=== PATIENT | male | born 1975 | race Caucasian/White ===

== ENCOUNTER 2023-11-07 20:21 | Inpatient (IN) ==
[2023-11-07 21:14] LABS: iSTAT Creatinine 0.8 mg/dl (0.6-1.3); iSTAT Hemoglobin 16.3 g/dl (14.0-18.0); iSTAT Ionized Calcium 1.19 mmol/l (1.12-1.32); iSTAT Potassium 3.7 mmol/L (3.3-5.0)
[2023-11-07 21:14] LABS: Hematocrit (blood only) 46.5 % (42.0-52.0); Hemoglobin 16.3 g/dl (14.0-18.0); Mean Corpuscular Hgb Conc 35.1 g/dL (32.0-36.0); Mean Corpuscular Volume 85.5 fL (80.0-100.0); Mean Platelet Volume 9.5 fL (9.4-12.4); Platelet Count 233 K/uL (130-400); RDW Coefficient of Variation 12.9 % (11.5-14.5); RDW Standard Deviation 39.3 fL (36.4-46.3); Red Blood Count 5.44 M/uL (4.70-6.10); White Blood Count 7.56 K/ul (4.8-10.8)
--- NOTE | 2023-11-07 21:22 | Emergency Department Note ---
Impression & Plan Cerebrovascular accident ED Provider Note NAME: EMORY SIGALA AGE: 48 SEX: M : 1975 ARRIVES VIA: Walk-In INFORMANT: Patient ED PROVIDER(S): Grady Rashid DO CHIEF COMPLAINT: Visual changes, unsteady gait HPI: Patient is a 48-year-old male with a past medical history of hypertension and CVA as well as hyperlipidemia that presents to the ER as he went to bed around 1 PM today. He got up around 4. He was unable to walk. He is having trouble with his vision and feels very off. This feels like his previous stroke. He admits to a posterior headache associated with it. Denies any chest pain or shortness of breath. No nausea, vomiting, or diarrhea. No dysuria, urgency, or frequency. No other exacerbating or remitting factors. ADDITIONAL HISTORY OBTAINED: Per HPI Chronic Medical/Social Conditions Affecting Care: Per HPI PAST MEDICAL HISTORY:See Below PAST SURGICAL HISTORY:See Below FAMILY HISTORY:See Below SOCIAL HISTORY:See Below HOME MEDICATIONS:See Below ALLERGIES:See Below VITALS:See Below PHYSICAL EXAMINATION: GENERAL: Sitting up in bed, alert, well appearing, well nourished, no distress, non-toxic EYE EXAM: normal conjunctiva. PERRL and EOM's intact. OROPHARYNX: no exudate, no erythema, lips, buccal mucosa, and tongue normal and mucous membranes are moist NECK: supple, no nuchal rigidity, no adenopathy, non-tender LUNGS: Clear to auscultation. Normal chest wall mechanics HEART: no murmurs, S1 normal and S2 normal ABDOMEN: abdomen soft, non-tender, normo-active bowel sounds, no masses, no rebound or guarding. BACK: Back is symmetrical on inspection and there is no deformity, no midline tenderness, no CVA tenderness. SKIN: no rashes and no bruising UPPER EXTREMITIES: upper extremities are grossly normal. LOWER EXTREMITIES: No pitting edema. NEURO EXAM: Normal sensorium, cranial nerves II-XII intact, normal speech, no weakness of arms, no weakness of legs. No drift. Finger to nose intact. Gross sensation intact. MEDICAL DECISION MAKING: Patient is a 48-year-old male who presents the ER for trouble with his vision as well is unsteady gait/feeling off balance. IV was established blood work was obtained. Labs show no significant leukocytosis or anemia. INR unremarkable. BMP along LFTs bilirubin was unremarkable. CT angio of the head and neck suggest a TAM occlusion/stenosis. [facility] She agrees that nothing additional can be done at this time other than adding in Plavix and giving a Plavix load of 300 at this time. Patient is already on aspirin. I recommend a full workup. Patient was discussed with the hospitalist for further evaluation management treatment. Consults/Care Managements Discussions: Per [facility] Triage Nursing notes reviewed. Limited review of prior medical records performed Vital Signs: reviewed and remarkable for HTN Differential diagnosis: Differential Diagnosis includes but is not limited to ischemic Stroke, hemorrhagic stroke, bells palsy, mass, neoplasm, migraine headache, seizure, subarachnoid hemorrhage, TIA, and transient global amnesia. ER treatment provided: See below Diagnostics interpreted by me include EKG and cardiac monitoring as listed below: -Cardiac Monitoring: An order was placed for continuous cardiac monitoring. The monitor shows a rate of 80 with sinus rhythm. -ECG: Sinus rhythm rate 82 Normal axis No PVCs QTc 427 -Laboratory studies:Interpreted by me as stated above in MDM and shown below. Imaging studies: Xrays: As interpreted by me: Portable AP upright 1 view of the chest shows no focal infiltrate CTs show: CT angios of the head and neck as described above Procedures:none Critical Care: None Past Med/Surg History Medical History (Updated 11/08/23 @ 01:25 by Grady Rashid DO) Kidney stones History of foreign body in eye removed Surgical History H/O lithotripsy ESWL Left 02/2023 at [facility] [place] Hx of wisdom tooth extraction Hx of excision of mass fatty tumor, back Hx of appendectomy Family History Other No family history of adverse response to anesthesia Social History Smoking Status: Current every day smoker Tobacco Type: Cigarettes Cigarettes Per Day: 1 pack per day - advised; Second Hand Exposure: No; Do You Dip or Chew Tobacco: No; Hx Alcohol Use: Yes Hx Substance Use: No Preferred Language: Togolese Communication Ability: Effective Family And Consumer Education Teacher Required: No Beliefs That Will Affect Care: None Current Living Situation: Significant Other Feels Safe at Home: Yes Assistive Devices: Glasses Allergies Allergies Allergy/AdvReac Type Severity Reaction Status Date / Time No Known Allergies Allergy Mild Verified 09/29/23 08:39 Home Meds Home Medications Medication Instructions Recorded Confirmed aspirin 81 mg capsule 81 mg PO QAM 03/04/23 09/29/23 atorvastatin 80 mg tablet 80 mg PO HS 03/04/23 09/29/23 losartan 100 mg tablet 100 mg PO HS 03/04/23 09/29/23 Results & Data (ED) Vital Signs Vital Signs - 24 hr 11/07/23 20:25 11/07/23 21:11 11/07/23 21:11 Temperature 36.7 C Temperature Source Temporal Artery Scan Pulse Rate 88 84 Pulse Rate [Apical] Pulse Rate from SpO2 Sensor Pulse Rhythm [Apical] Respiratory Rate 17 16 Respiratory Effort / Characteristics Non-Labored Spontaneous Respiratory Depth Normal Respiratory Pattern Bradypnea Blood Pressure 167/112 H Blood Pressure [Left Arm] Blood Pressure Mean 130 Blood Pressure Mean [Left Arm] Pulse Oximetry 94 94 94 Oxygen Delivery Method Room Air Room Air Room Air Sepsis Recent Fever Within 48 Hours No Sepsis New/Unexplained Change in Mental Status No Sepsis Action Taken by Nursing No Action Required 11/07/23 21:12 11/07/23 22:02 11/07/23 22:57 Temperature Temperature Source Pulse Rate 81 Pulse Rate [Apical] 83 82 Pulse Rate from SpO2 Sensor 82 Pulse Rhythm [Apical] Regular Respiratory Rate 16 16 15 Respiratory Effort / Characteristics Non-Labored Spontaneous Respiratory Depth Normal Respiratory Pattern Regular Blood Pressure Blood Pressure [Left Arm] 148/103 H 141/103 H Blood Pressure Mean Blood Pressure Mean [Left Arm] 118 115 Pulse Oximetry 94 95 95 Oxygen Delivery Method Room Air Room Air Sepsis Recent Fever Within 48 Hours Sepsis New/Unexplained Change in Mental Status Sepsis Action Taken by Nursing 11/07/23 23:00 11/07/23 23:00 11/07/23 23:00 Temperature Temperature Source Pulse Rate 79 81 78 Pulse Rate [Apical] Pulse Rate from SpO2 Sensor 79 Pulse Rhythm [Apical] Respiratory Rate 15 20 Respiratory Effort / Characteristics Respiratory Depth Respiratory Pattern Blood Pressure 139/110 H Blood Pressure [Left Arm] Blood Pressure Mean 121 Blood Pressure Mean [Left Arm] Pulse Oximetry 95 95 Oxygen Delivery Method Sepsis Recent Fever Within 48 Hours Sepsis New/Unexplained Change in Mental Status Sepsis Action Taken by Nursing 11/07/23 23:10 11/07/23 23:20 11/07/23 23:30 Temperature Temperature Source Pulse Rate 81 85 85 Pulse Rate [Apical] Pulse Rate from SpO2 Sensor 84 82 Pulse Rhythm [Apical] Respiratory Rate 20 26 H 26 H Respiratory Effort / Characteristics Respiratory Depth Respiratory Pattern Blood Pressure 144/106 H Blood Pressure [Left Arm] Blood Pressure Mean 128 Blood Pressure Mean [Left Arm] Pulse Oximetry 95 97 97 Oxygen Delivery Method Sepsis Recent Fever Within 48 Hours Sepsis New/Unexplained Change in Mental Status Sepsis Action Taken by Nursing 11/07/23 23:30 11/07/23 23:40 11/07/23 23:50 Temperature Temperature Source Pulse Rate 86 86 81 Pulse Rate [Apical] Pulse Rate from SpO2 Sensor 90 86 81 Pulse Rhythm [Apical] Respiratory Rate 21 20 23 Respiratory Effort / Characteristics Respiratory Depth Respiratory Pattern Blood Pressure Blood Pressure [Left Arm] Blood Pressure Mean Blood Pressure Mean [Left Arm] Pulse Oximetry 95 97 97 Oxygen Delivery Method Sepsis Recent Fever Within 48 Hours Sepsis New/Unexplained Change in Mental Status Sepsis Action Taken by Nursing 11/08/23 00:00 11/08/23 00:00 11/08/23 00:10 Temperature Temperature Source Pulse Rate 87 78 Pulse Rate [Apical] Pulse Rate from SpO2 Sensor 85 79 Pulse Rhythm [Apical] Respiratory Rate 25 H 18 Respiratory Effort / Characteristics Respiratory Depth Respiratory Pattern Blood Pressure 141/105 H Blood Pressure [Left Arm] Blood Pressure Mean 117 Blood Pressure Mean [Left Arm] Pulse Oximetry 96 96 Oxygen Delivery Method Sepsis Recent Fever Within 48 Hours Sepsis New/Unexplained Change in Mental Status Sepsis Action Taken by Nursing 11/08/23 00:20 11/08/23 00:30 11/08/23 00:30 Temperature Temperature Source Pulse Rate 89 84 Pulse Rate [Apical] Pulse Rate from SpO2 Sensor 90 84 Pulse Rhythm [Apical] Respiratory Rate 18 22 Respiratory Effort / Characteristics Respiratory Depth Respiratory Pattern Blood Pressure 146/102 H Blood Pressure [Left Arm] Blood Pressure Mean 117 Blood Pressure Mean [Left Arm] Pulse Oximetry 96 97 Oxygen Delivery Method Sepsis Recent Fever Within 48 Hours Sepsis New/Unexplained Change in Mental Status Sepsis Action Taken by Nursing 11/08/23 00:40 11/08/23 00:50 11/08/23 01:00 Temperature Temperature Source Pulse Rate 86 87 87 Pulse Rate [Apical] Pulse Rate from SpO2 Sensor 90 88 Pulse Rhythm [Apical] Respiratory Rate 24 25 H 25 H Respiratory Effort / Characteristics Respiratory Depth Respiratory Pattern Blood Pressure 139/96 Blood Pressure [Left Arm] Blood Pressure Mean 107 Blood Pressure Mean [Left Arm] Pulse Oximetry 97 94 94 Oxygen Delivery Method Sepsis Recent Fever Within 48 Hours Sepsis New/Unexplained Change in Mental Status Sepsis Action Taken by Nursing 11/08/23 01:00 Temperature Temperature Source Pulse Rate 88 Pulse Rate [Apical] Pulse Rate from SpO2 Sensor 87 Pulse Rhythm [Apical] Respiratory Rate 19 Respiratory Effort / Characteristics Respiratory Depth Respiratory Pattern Blood Pressure Blood Pressure [Left Arm] Blood Pressure Mean Blood Pressure Mean [Left Arm] Pulse Oximetry 93 Oxygen Delivery Method Sepsis Recent Fever Within 48 Hours Sepsis New/Unexplained Change in Mental Status Sepsis Action Taken by Nursing Laboratory Data 11/07/23 20:50 11/07/23 20:50 Lab Results 11/07/23 11/07/23 Range/Units 20:50 20:55 WBC 7.56 (4.8-10.8) K/ul RBC 5.44 (4.70-6.10) M/uL Hgb 16.3 (14.0-18.0) g/dl POC Hgb 16.3 (14.0-18.0) g/dl Hct 46.5 (42.0-52.0) % POC Hct 48 (42-52) % MCV 85.5 (80.0-100.0) fL MCH 30.0 (25.0-34.0) pg MCHC 35.1 (32.0-36.0) g/dL RDW Std Deviation 39.3 (36.4-46.3) fL RDW Coeff of Delio 12.9 (11.5-14.5) % Plt Count 233 (130-400) K/uL MPV 9.5 (9.4-12.4) fL PT 9.8 (9.0-12.0) Seconds INR 0.9 (0.9-1.1) APTT 26 (21-31) Seconds PTT Ratio 0.9 POC Sodium 140 (135-144) mmol/L Sodium 138 (136-145) mmol/L POC Potassium 3.7 (3.3-5.0) mmol/L Potassium 3.7 (3.5-5.1) mmol/L POC Chloride 103 (101-112) mmol/L Chloride 105 (98-107) mmol/L Carbon Dioxide 27 (21-32) mmol/L POC Total CO2 24 (24-31) mmol/L Anion Gap 6 (3-11) POC Anion Gap 17.0 (16-25) mmol/L POC BUN 17 (7-18) mg/dl BUN 18 (6-23) mg/dl Creatinine 0.97 (0.6-1.4) mg/dl POC Creatinine 0.8 (0.6-1.3) mg/dl Est Cr Clr Drug Dosing 112.5 ml/min Est GFR ( Amer) 107.3 ml/min Est GFR (Non-Af Amer) 92.6 ml/min BUN/Creatinine Ratio 18.6 (10-20) Glucose 93 (70-99(Fasting)) mg/dl POC Glucose (other) 93 (70-99) mg/dl Calcium 9.7 (8.6-10.3) mg/dl POC Ioniz Calcium Valeria 1.19 (1.12-1.32) mmol/l Magnesium 2.0 (1.7-2.4) mg/dl Total Bilirubin 0.3 (0.2-1.0) mg/dl AST 17 (13-39) U/L ALT 29 (7-52) U/L Alkaline Phosphatase 59 (34-104) U/L Total Protein 7.3 (6.0-8.3) gm/dl Albumin 4.6 (3.4-5.0) gm/dl Globulin 2.7 (2.5-4.0) gm/dl Albumin/Globulin Ratio 1.7 (0.9-2) Administered Medications Discontinued Medications Clopidogrel Bisulfate (Clopidogrel Bisulfate 300 Mg Tab) 300 mg PO NOW STA Stop: 11/07/23 22:33 Last Admin: 11/07/23 22:54 Dose: 300 mg Documented By: HA Sodium Chloride (Nss) 1,000 mls @ 999 mls/hr IV .Q1H1M ONE Stop: 11/07/23 22:22 Last Infusion: 11/07/23 23:59 Dose: Infused Documented By: Admin: 11/07/23 22:54 Dose: 999 mls/hr Documented By: HA Ioversol (Optiray 320 125ml) 115 ml IV ONCE ONE Stop: 11/07/23 21:44 Last Admin: 11/07/23 21:44 Dose: 115 ml Documented By: KOURTNEY Ketorolac Tromethamine (Ketorolac Tromethamine 15 Mg/Ml Vial) 15 mg IV NOW ONE Stop: 11/07/23 21:23 Last Admin: 11/07/23 22:54 Dose: 15 mg Documented By: HA Imaging Data Radiologist's Impression: Head CT 11/07/23 21:00 Exam(s): CT HEAD Without Contrast EXAM: CT Head Without Intravenous Contrast CLINICAL HISTORY: Neuro deficit, acute, stroke suspected. TECHNIQUE: Axial computed tomography images of the head/brain without intravenous contrast. CTDI is 29.77 mGy and DLP is 448.01 mGy-cm. Automated exposure control was utilized for the study. A dose lowering technique was utilized adhering to the principles of ALARA. COMPARISON: No relevant prior studies available. FINDINGS: Brain: No intracranial hemorrhage, mass-effect or midline shift. No abnormal extra axial fluid. No evidence of acute infarct. Mild periventricular white matter hypodensities are most consistent with chronic microangiopathy. Ventricles: Unremarkable. No ventriculomegaly. Bones/joints: Unremarkable. No acute fracture. Soft tissues: Unremarkable. Sinuses: Unremarkable as visualized. No acute sinusitis. Mastoid air cells: Unremarkable as visualized. No mastoid effusion. IMPRESSION: No acute intracranial finding. Electronically signed by: Tracy Fiore MD 11/07/23 22:14 PM Head CTA 11/07/23 21:08 CR Exam(s): CTA HEAD With Contrast IV Amt: 115 ml optiray 320 EXAM: CT Angiography Head With Intravenous Contrast CLINICAL HISTORY: Left arm numbness. TECHNIQUE: Axial computed tomographic angiography images of the head with intravenous contrast. CTDI is 29.77 mGy and DLP is 448.01 mGy-cm. Automated exposure control was utilized for the study. A dose lowering technique was utilized adhering to the principles of ALARA. MIP reconstructed images were created and reviewed. CONTRAST: Patient received 115 ml optiray 320 of IV contrast COMPARISON: No relevant prior studies available. FINDINGS: Right internal carotid artery: No acute findings. Intracranial segment is patent with no significant stenosis. No aneurysm. Right anterior cerebral artery: Question focal high-grade stenosis of the far distal right anterior cerebral artery, best seen on axial series 6 images 177 through 181. No aneurysm. Right middle cerebral artery: Unremarkable. No occlusion or significant stenosis. No aneurysm. Right posterior cerebral artery: Unremarkable. No occlusion or significant stenosis. No aneurysm. Right vertebral artery: Unremarkable as visualized. Left internal carotid artery: No acute findings. Intracranial segment is patent with no significant stenosis. No aneurysm. Left anterior cerebral artery: Unremarkable. No occlusion or significant stenosis. No aneurysm. Left middle cerebral artery: Unremarkable. No occlusion or significant stenosis. No aneurysm. Left posterior cerebral artery: Unremarkable. No occlusion or significant stenosis. No aneurysm. Left vertebral artery: Unremarkable as visualized. Basilar artery: Unremarkable. No occlusion or significant stenosis. No aneurysm. IMPRESSION: Question focal high-grade stenosis of the far distal right anterior cerebral artery, best seen on axial series 6 images 177 through 181. Communications: Call Doctor Above results Electronically signed by: Tracy Fiore MD 11/07/23 22:20 PM Neck CTA 11/07/23 21:08 Exam(s): CTA NECK With Contrast IV Amt: 115 ml optiray 320 EXAM: CT Angiography Neck With Intravenous Contrast CLINICAL HISTORY: Blurry vision and left arm numbness. TECHNIQUE: Routine carotid CT angiography protocol was performed with intravenous contrast. NASCET criteria using the distal ICAs for comparison were used for evaluation of stenoses. CTDI is 12.55 mGy and DLP is 490.03 mGy-cm. Automated exposure control was utilized for the study. A dose lowering technique was utilized adhering to the principles of ALARA. MIP reconstructed images were created and reviewed. CONTRAST: Patient received 115 ml optiray 320 of IV contrast COMPARISON: None. FINDINGS: VASCULATURE: Right common carotid artery: Unremarkable. No occlusion or significant stenosis. No dissection. Right internal carotid artery: Unremarkable. Extracranial segment is patent with no occlusion or significant stenosis. No dissection. Right external carotid artery: Unremarkable. No occlusion. Right vertebral artery: The vertebral artery is diminutive throughout its course, normal variant. No occlusion or significant stenosis. No dissection. Left common carotid artery: Unremarkable. No occlusion or significant stenosis. No dissection. Left internal carotid artery: Unremarkable. Extracranial segment is patent with no occlusion or significant stenosis. No dissection. Left external carotid artery: Unremarkable. No occlusion. Left vertebral artery: See above. NECK: Bones/joints: Unremarkable. No acute fracture. Soft tissues: Unremarkable. Lung apices: Clear. CAROTID STENOSIS REFERENCE USING NASCET CRITERIA: % ICA stenosis = (1 - narrowest ICA diameter/diameter of distal cervical ICA) x 100. Mild - <50% stenosis. Moderate - 50-69% stenosis. Severe - 70-94% stenosis. Near occlusion - 95-99% stenosis. Occluded - 100% stenosis. IMPRESSION: No acute finding of the arteries of the neck. Electronically signed by: Tracy Fiore MD 11/07/23 22:23 PM Discharge Plan Visit Data Chief Complaint: TIA Symptoms Stated Complaint: DIZZY,RT NECK/SHOULDER PAIN,TUNNEL VISION,HIGH BP ED Provider: Grady Rashid Discharge Problem: Cerebrovascular accident Forms Stand Alone Forms: [facility] [employer] Prescriptions Prescriptions: No Action atorvastatin 80 mg Tablet 80 mg PO HS losartan 100 mg Tablet 100 mg PO HS aspirin 81 mg Capsule 81 mg PO QAM Referrals Referrals: Ludwin Mohr DO [Primary Care Provider] - Discharge Problem: Cerebrovascular accident Qualifiers: CVA mechanism: unspecified Qualified Code(s): I63.9 - Cerebral infarction, unspecified
[2023-11-07 21:30] LABS: Albumin Globulin Ratio 1.7 (0.9-2); Albumin Level 4.6 gm/dl (3.4-5.0); BUN Creatinine Ratio 18.6 (10-20); Bilirubin,Total 0.3 mg/dl (0.2-1.0); Calcium 9.7 mg/dl (8.6-10.3); Creatinine Clr Calc Pharmacy 112.5 ml/min; Est GFR (African American) 107.3 ml/min; Est GFR (Non-African American) 92.6 ml/min; Globulin 2.7 gm/dl (2.5-4.0); Potassium 3.7 mmol/L (3.5-5.1); Total Protein 7.3 gm/dl (6.0-8.3)
[2023-11-07 21:39] LABS: INR 0.9 (0.9-1.1); Partial Thromboplastin Ratio 0.9; Partial Thromboplastin Time 26 Seconds (21-31); Prothrombin Time 9.8 Seconds (9.0-12.0)
[2023-11-07] MEDS: OPTIRAY 320 125ml IV ONE (21:44)
--- NOTE | 2023-11-07 22:14 | CT Scan Report ---
Exam(s): CT HEAD Without Contrast EXAM: CT Head Without Intravenous Contrast CLINICAL HISTORY: Neuro deficit, acute, stroke suspected. TECHNIQUE: Axial computed tomography images of the head/brain without intravenous contrast. CTDI is 29.77 mGy and DLP is 448.01 mGy-cm. Automated exposure control was utilized for the study. A dose lowering technique was utilized adhering to the principles of ALARA. COMPARISON: No relevant prior studies available. FINDINGS: Brain: No intracranial hemorrhage, mass-effect or midline shift. No abnormal extra axial fluid. No evidence of acute infarct. Mild periventricular white matter hypodensities are most consistent with chronic microangiopathy. Ventricles: Unremarkable. No ventriculomegaly. Bones/joints: Unremarkable. No acute fracture. Soft tissues: Unremarkable. Sinuses: Unremarkable as visualized. No acute sinusitis. Mastoid air cells: Unremarkable as visualized. No mastoid effusion. IMPRESSION: No acute intracranial finding. Electronically signed by: Tracy Fiore MD 11/07/23 22:14 PM
--- NOTE | 2023-11-07 22:21 | CT Scan Report ---
Exam(s): CTA HEAD With Contrast IV Amt: 115 ml optiray 320 EXAM: CT Angiography Head With Intravenous Contrast CLINICAL HISTORY: Left arm numbness. TECHNIQUE: Axial computed tomographic angiography images of the head with intravenous contrast. CTDI is 29.77 mGy and DLP is 448.01 mGy-cm. Automated exposure control was utilized for the study. A dose lowering technique was utilized adhering to the principles of ALARA. MIP reconstructed images were created and reviewed. CONTRAST: Patient received 115 ml optiray 320 of IV contrast COMPARISON: No relevant prior studies available. FINDINGS: Right internal carotid artery: No acute findings. Intracranial segment is patent with no significant stenosis. No aneurysm. Right anterior cerebral artery: Question focal high-grade stenosis of the far distal right anterior cerebral artery, best seen on axial series 6 images 177 through 181. No aneurysm. Right middle cerebral artery: Unremarkable. No occlusion or significant stenosis. No aneurysm. Right posterior cerebral artery: Unremarkable. No occlusion or significant stenosis. No aneurysm. Right vertebral artery: Unremarkable as visualized. Left internal carotid artery: No acute findings. Intracranial segment is patent with no significant stenosis. No aneurysm. Left anterior cerebral artery: Unremarkable. No occlusion or significant stenosis. No aneurysm. Left middle cerebral artery: Unremarkable. No occlusion or significant stenosis. No aneurysm. Left posterior cerebral artery: Unremarkable. No occlusion or significant stenosis. No aneurysm. Left vertebral artery: Unremarkable as visualized. Basilar artery: Unremarkable. No occlusion or significant stenosis. No aneurysm. IMPRESSION: Question focal high-grade stenosis of the far distal right anterior cerebral artery, best seen on axial series 6 images 177 through 181. Communications: Call Doctor Above results Electronically signed by: Tracy Fiore MD 11/07/23 22:20 PM
--- NOTE | 2023-11-07 22:24 | CT Scan Report ---
Exam(s): CTA NECK With Contrast IV Amt: 115 ml optiray 320 EXAM: CT Angiography Neck With Intravenous Contrast CLINICAL HISTORY: Blurry vision and left arm numbness. TECHNIQUE: Routine carotid CT angiography protocol was performed with intravenous contrast. NASCET criteria using the distal ICAs for comparison were used for evaluation of stenoses. CTDI is 12.55 mGy and DLP is 490.03 mGy-cm. Automated exposure control was utilized for the study. A dose lowering technique was utilized adhering to the principles of ALARA. MIP reconstructed images were created and reviewed. CONTRAST: Patient received 115 ml optiray 320 of IV contrast COMPARISON: None. FINDINGS: VASCULATURE: Right common carotid artery: Unremarkable. No occlusion or significant stenosis. No dissection. Right internal carotid artery: Unremarkable. Extracranial segment is patent with no occlusion or significant stenosis. No dissection. Right external carotid artery: Unremarkable. No occlusion. Right vertebral artery: The vertebral artery is diminutive throughout its course, normal variant. No occlusion or significant stenosis. No dissection. Left common carotid artery: Unremarkable. No occlusion or significant stenosis. No dissection. Left internal carotid artery: Unremarkable. Extracranial segment is patent with no occlusion or significant stenosis. No dissection. Left external carotid artery: Unremarkable. No occlusion. Left vertebral artery: See above. NECK: Bones/joints: Unremarkable. No acute fracture. Soft tissues: Unremarkable. Lung apices: Clear. CAROTID STENOSIS REFERENCE USING NASCET CRITERIA: % ICA stenosis = (1 - narrowest ICA diameter/diameter of distal cervical ICA) x 100. Mild - <50% stenosis. Moderate - 50-69% stenosis. Severe - 70-94% stenosis. Near occlusion - 95-99% stenosis. Occluded - 100% stenosis. IMPRESSION: No acute finding of the arteries of the neck. Electronically signed by: Tracy Fiore MD 11/07/23 22:23 PM
[2023-11-07] MEDS: SODIUM CHLORIDE 0.9% 1,000 ML IV ONE (22:54)
[2023-11-07] MEDS: KETOROLAC TROMETHAMINE 15 MG/ML VIAL IV ONE (22:54)
[2023-11-07] MEDS: CLOPIDOGREL BISULFATE 300 MG TAB PO STA (22:54)
--- NOTE | 2023-11-07 23:18 | History & Physical Report ---
Date of Service November 07, 2023 Assessment & Plan (1) Cerebrovascular accident: Plan: Concern for stroke. Workup as above with concern for high-grade stenosis at right distal TAM. Patient symptoms improving. -Admit to medical with telemetry NIH stroke scale and neurochecks per protocol Continue aspirin 81 mg p.o. daily Start Plavix 75 mg p.o. daily Continue atorvastatin 80 mg p.o. daily Check MRI brain Check 2D echo with bubble study Check hemoglobin A1c and lipid panel Neurology consultation appreciated (2) Hyperlipidemia: Plan: Chronic. Stable. Check lipid panel in the morning Continue atorvastatin 80 mg p.o. daily (3) HTN (hypertension): Plan: Blood pressure elevated on arrival. Now improved. Continue to monitor. Hold patient's losartan 100 mg p.o. nightly for now to allow for permissive hypertension (4) Smoker: Plan: Tobacco cessation encouraged History of Present Illness Chief Complaint: Neck pain, blurry vision Primary Care Provider: Ludwin Mohr DO Omid Gordon is a 48-year-old male with history of hypertension, hyperlipidemia ongoing tobacco use and prior hemorrhagic CVA 4 years ago presenting with complaint of gait instability as well as blurry vision. Patient reports having a posterior headache and pain in the back of his neck and shoulders as well as chest which has been ongoing since approximately 1700 today. He had some unsteady gait as well as some visual disturbance as wellstates that he was unable to focus his eyes and it felt as though he was looking through a tunnel. He denies focal numbness, tingling or weakness. No additional complaints such as fever or chills, shortness of breath, abdominal pain, nausea, vomiting, diarrhea. In the ER, patient is afebrile, hypertensive otherwise hemodynamically stable. No acute distress Code stroke activated, patient discussed between ER provider and Betty stroke provider. Recommended Plavix in addition to his aspirin. ER course: Plavix 300 mg Toradol 15 mg IV Normal saline x 1 L Allergies Allergy/AdvReac Type Severity Reaction Status Date / Time No Known Allergies Allergy Mild Verified 09/29/23 08:39 Home Medications Medication Instructions Recorded Confirmed Type aspirin 81 mg capsule 81 mg PO QA 03/04/23 09/29/23 History atorvastatin 80 mg tablet 80 mg PO HS 03/04/23 09/29/23 History losartan 100 mg tablet 100 mg PO HS 03/04/23 09/29/23 History Past Med/Surg History Medical History (Updated 11/08/23 @ 01:56 by Ariana Velasco DO) Cerebrovascular accident hemorrhagic CVA Hyperlipidemia HTN (hypertension) Kidney stones Surgical History H/O lithotripsy ESWL Left 02/2023 at [facility] [place] Hx of wisdom tooth extraction Hx of excision of mass fatty tumor, back Hx of appendectomy Family History Other No family history of adverse response to anesthesia Social History Smoking Status: Current every day smoker Tobacco Type: Cigarettes Cigarettes Per Day: 1 pack per day - advised; Second Hand Exposure: No; Do You Dip or Chew Tobacco: No; Hx Alcohol Use: Yes Hx Substance Use: No Preferred Language: Swedish Communication Ability: Effective Electrical Service Technician Required: No Beliefs That Will Affect Care: None Current Living Situation: Significant Other Feels Safe at Home: Yes Assistive Devices: Glasses Review of Systems Review of Systems: All systems reviewed & are unremarkable except as noted in HPI & below Physical Exam Physical Exam: General: patient resting comfortably, NAD, non-toxic in appearance, AA&O x 4 Skin: warm, dry, intact, no rashes or lesions HEENT: NC/AT, PERRL, EOMI, anicteric sclera, conjunctiva without injection, external ear normal to inspection and nontender, nares patent, moist mucus membranes, dentition intact, no oropharyngeal lesions, neck supple, trachea midline, no LAD, no thyromegaly, no JVD Heart: +S1/S2, regular, no m/r/g Lungs: equal air entry bilaterally, no rales/rhonchi/wheezes Abd: +BS, soft, NT/ND, no masses/organomegaly/ascites Ext: warm, 2+ pulses in UE/LE bilaterally, no clubbing/cyanosis or edema Neuro: nonfocal, patient AA&O x 4, speech intact, no facial droop, moving all extremities on command with equal strength 5/5 Results & Data Results & Data Vital Signs (Past 12 Hours) Vital Signs Temp Pulse Pulse Resp BP BP Pulse Ox 11/07/23 22:02 82 16 141/103 H 95 11/07/23 21:12 83 16 148/103 H 94 11/07/23 21:11 84 16 94 11/07/23 21:11 94 11/07/23 20:25 36.7 C 88 17 167/112 H 94 O2 Del Method 11/07/23 22:02 Room Air 11/07/23 21:12 Room Air 11/07/23 21:11 Room Air 11/07/23 21:11 Room Air 11/07/23 20:25 Room Air Laboratory Results Laboratory Results WBC 7.56 K/ul (4.8-10.8) 11/07/23 20:50 RBC 5.44 M/uL (4.70-6.10) 11/07/23 20:50 Hgb 16.3 g/dl (14.0-18.0) 11/07/23 20:50 POC Hgb 16.3 g/dl (14.0-18.0) 11/07/23 20:55 Hct 46.5 % (42.0-52.0) 11/07/23 20:50 POC Hct 48 % (42-52) 11/07/23 20:55 MCV 85.5 fL (80.0-100.0) 11/07/23 20:50 MCH 30.0 pg (25.0-34.0) 11/07/23 20:50 MCHC 35.1 g/dL (32.0-36.0) 11/07/23 20:50 RDW Std Deviation 39.3 fL (36.4-46.3) 11/07/23 20:50 RDW Coeff of Delio 12.9 % (11.5-14.5) 11/07/23 20:50 Plt Count 233 K/uL (130-400) 11/07/23 20:50 MPV 9.5 fL (9.4-12.4) 11/07/23 20:50 PT 9.8 Seconds (9.0-12.0) 11/07/23 20:50 INR 0.9 (0.9-1.1) 11/07/23 20:50 APTT 26 Seconds (21-31) 11/07/23 20:50 PTT Ratio 0.9 11/07/23 20:50 POC Sodium 140 mmol/L (135-144) 11/07/23 20:55 Sodium 138 mmol/L (136-145) 11/07/23 20:50 POC Potassium 3.7 mmol/L (3.3-5.0) 11/07/23 20:55 Potassium 3.7 mmol/L (3.5-5.1) 11/07/23 20:50 POC Chloride 103 mmol/L (101-112) 11/07/23 20:55 Chloride 105 mmol/L (98-107) 11/07/23 20:50 Carbon Dioxide 27 mmol/L (21-32) 11/07/23 20:50 POC Total CO2 24 mmol/L (24-31) 11/07/23 20:55 Anion Gap 6 (3-11) 11/07/23 20:50 POC Anion Gap 17.0 mmol/L (16-25) 11/07/23 20:55 POC BUN 17 mg/dl (7-18) 11/07/23 20:55 BUN 18 mg/dl (6-23) 11/07/23 20:50 Creatinine 0.97 mg/dl (0.6-1.4) 11/07/23 20:50 POC Creatinine 0.8 mg/dl (0.6-1.3) 11/07/23 20:55 Est Cr Clr Drug Dosing 112.5 ml/min 11/07/23 20:50 Est GFR ( Amer) 107.3 ml/min 11/07/23 20:50 Est GFR (Non-Af Amer) 92.6 ml/min 11/07/23 20:50 BUN/Creatinine Ratio 18.6 (10-20) 11/07/23 20:50 Glucose 93 mg/dl (70-99(Fasting)) 11/07/23 20:50 POC Glucose (other) 93 mg/dl (70-99) 11/07/23 20:55 Calcium 9.7 mg/dl (8.6-10.3) 11/07/23 20:50 POC Ioniz Calcium Valeria 1.19 mmol/l (1.12-1.32) 11/07/23 20:55 Magnesium 2.0 mg/dl (1.7-2.4) 11/07/23 20:50 Total Bilirubin 0.3 mg/dl (0.2-1.0) 11/07/23 20:50 AST 17 U/L (13-39) 11/07/23 20:50 ALT 29 U/L (7-52) 11/07/23 20:50 Alkaline Phosphatase 59 U/L (34-104) 11/07/23 20:50 Total Protein 7.3 gm/dl (6.0-8.3) 11/07/23 20:50 Albumin 4.6 gm/dl (3.4-5.0) 11/07/23 20:50 Globulin 2.7 gm/dl (2.5-4.0) 11/07/23 20:50 Albumin/Globulin Ratio 1.7 (0.9-2) 11/07/23 20:[address] 11/07/23 21:00 Exam(s): CT HEAD Without Contrast EXAM: CT Head Without Intravenous Contrast CLINICAL HISTORY: Neuro deficit, acute, stroke suspected. TECHNIQUE: Axial computed tomography images of the head/brain without intravenous contrast. CTDI is 29.77 mGy and DLP is 448.01 mGy-cm. Automated exposure control was utilized for the study. A dose lowering technique was utilized adhering to the principles of ALARA. COMPARISON: No relevant prior studies available. FINDINGS: Brain: No intracranial hemorrhage, mass-effect or midline shift. No abnormal extra axial fluid. No evidence of acute infarct. Mild periventricular white matter hypodensities are most consistent with chronic microangiopathy. Ventricles: Unremarkable. No ventriculomegaly. Bones/joints: Unremarkable. No acute fracture. Soft tissues: Unremarkable. Sinuses: Unremarkable as visualized. No acute sinusitis. Mastoid air cells: Unremarkable as visualized. No mastoid effusion. IMPRESSION: No acute intracranial finding. Electronically signed by: Tracy Fiore MD 11/07/23 22:14 PM Head CTA 11/07/23 21:08 CR Exam(s): CTA HEAD With Contrast IV Amt: 115 ml optiray 320 EXAM: CT Angiography Head With Intravenous Contrast CLINICAL HISTORY: Left arm numbness. TECHNIQUE: Axial computed tomographic angiography images of the head with intravenous contrast. CTDI is 29.77 mGy and DLP is 448.01 mGy-cm. Automated exposure control was utilized for the study. A dose lowering technique was utilized adhering to the principles of ALARA. MIP reconstructed images were created and reviewed. CONTRAST: Patient received 115 ml optiray 320 of IV contrast COMPARISON: No relevant prior studies available. FINDINGS: Right internal carotid artery: No acute findings. Intracranial segment is patent with no significant stenosis. No aneurysm. Right anterior cerebral artery: Question focal high-grade stenosis of the far distal right anterior cerebral artery, best seen on axial series 6 images 177 through 181. No aneurysm. Right middle cerebral artery: Unremarkable. No occlusion or significant stenosis. No aneurysm. Right posterior cerebral artery: Unremarkable. No occlusion or significant stenosis. No aneurysm. Right vertebral artery: Unremarkable as visualized. Left internal carotid artery: No acute findings. Intracranial segment is patent with no significant stenosis. No aneurysm. Left anterior cerebral artery: Unremarkable. No occlusion or significant stenosis. No aneurysm. Left middle cerebral artery: Unremarkable. No occlusion or significant stenosis. No aneurysm. Left posterior cerebral artery: Unremarkable. No occlusion or significant stenosis. No aneurysm. Left vertebral artery: Unremarkable as visualized. Basilar artery: Unremarkable. No occlusion or significant stenosis. No aneurysm. IMPRESSION: Question focal high-grade stenosis of the far distal right anterior cerebral artery, best seen on axial series 6 images 177 through 181. Communications: Call Doctor Above results Electronically signed by: Tracy Fiore MD 11/07/23 22:20 PM Neck CTA 11/07/23 21:08 Exam(s): CTA NECK With Contrast IV Amt: 115 ml optiray 320 EXAM: CT Angiography Neck With Intravenous Contrast CLINICAL HISTORY: Blurry vision and left arm numbness. TECHNIQUE: Routine carotid CT angiography protocol was performed with intravenous contrast. NASCET criteria using the distal ICAs for comparison were used for evaluation of stenoses. CTDI is 12.55 mGy and DLP is 490.03 mGy-cm. Automated exposure control was utilized for the study. A dose lowering technique was utilized adhering to the principles of ALARA. MIP reconstructed images were created and reviewed. CONTRAST: Patient received 115 ml optiray 320 of IV contrast COMPARISON: None. FINDINGS: VASCULATURE: Right common carotid artery: Unremarkable. No occlusion or significant stenosis. No dissection. Right internal carotid artery: Unremarkable. Extracranial segment is patent with no occlusion or significant stenosis. No dissection. Right external carotid artery: Unremarkable. No occlusion. Right vertebral artery: The vertebral artery is diminutive throughout its course, normal variant. No occlusion or significant stenosis. No dissection. Left common carotid artery: Unremarkable. No occlusion or significant stenosis. No dissection. Left internal carotid artery: Unremarkable. Extracranial segment is patent with no occlusion or significant stenosis. No dissection. Left external carotid artery: Unremarkable. No occlusion. Left vertebral artery: See above. NECK: Bones/joints: Unremarkable. No acute fracture. Soft tissues: Unremarkable. Lung apices: Clear. CAROTID STENOSIS REFERENCE USING NASCET CRITERIA: % ICA stenosis = (1 - narrowest ICA diameter/diameter of distal cervical ICA) x 100. Mild - <50% stenosis. Moderate - 50-69% stenosis. Severe - 70-94% stenosis. Near occlusion - 95-99% stenosis. Occluded - 100% stenosis. IMPRESSION: No acute finding of the arteries of the neck. Electronically signed by: Tracy Fiore MD 11/07/23 22:23 PM PG Care Time/CCT Total # of Minutes Spent Total Time Spent with Patient: Total time spent is greater than 50% in coordination of care (as documented) at patient's floor/unit and/or counseling patient: Coding Level of Care Code 70298 INT INP/OBS CARE 2/MIN Diagnoses Cerebrovascular accident I63.9 CVA mechanism: unspecified Hyperlipidemia E78.5 HTN (hypertension) I10 Smoker F17.200 (1) Cerebrovascular accident CVA mechanism: unspecified Qualified Code(s): I63.9 - Cerebral infarction, unspecified
[2023-11-08] MEDS ORDERED: PHARMACIST DISCHARGE MED REC CONSULT PRN (03:26)
[2023-11-08] MEDS ORDERED: ACETAMINOPHEN 325 MG TAB PO PRN (03:26)
[2023-11-08] MEDS ORDERED: ONDANSETRON INJ 2 MG/ML 2 ML VIAL IV PRN (03:26)
[2023-11-08] MEDS: GADOBUTROL 65ML VIAL IV ONE (04:37)
[2023-11-08] MEDS: CLOPIDOGREL BISULFATE 75 MG TAB PO ONE (04:52)
[2023-11-08 07:07] LABS: Basophils # (auto) 0.05 K/uL (0.00-0.20); Basophils % (auto) 0.6 %; Eosinophils # (auto) 0.18 K/uL (0.00-0.50); Eosinophils % (auto) 2.1 %; Hematocrit (blood only) 45.6 % (42.0-52.0); Hemoglobin 15.5 g/dl (14.0-18.0); Immature Granulocytes # (auto) 0.02 K/uL (0.01-0.20); Immature Granulocytes % (auto) 0.2 %; Lymphocytes # (auto) 2.43 K/uL (1.20-3.40); Lymphocytes % (auto) 28.9 %; Mean Corpuscular Hemoglobin 29.5 pg (25.0-34.0); Mean Corpuscular Volume 86.7 fL (80.0-100.0); Mean Platelet Volume 9.8 fL (9.4-12.4); Monocytes # (auto) 0.68 K/uL (0.11-0.59); Monocytes % (auto) 8.1 %; Neutrophils # (auto) 5.04 K/uL (1.40-6.50); Neutrophils % (auto) 60.1 %; Platelet Count 241 K/uL (130-400); RDW Coefficient of Variation 13.1 % (11.5-14.5); RDW Standard Deviation 40.8 fL (36.4-46.3); Red Blood Count 5.26 M/uL (4.70-6.10)
[2023-11-08 07:30] LABS: BUN Creatinine Ratio 14.4 (10-20); Chol HDL Ratio 2.9 (0-5); Creatinine Clr Calc Pharmacy 112.5 ml/min; Est GFR (African American) 107.3 ml/min; Est GFR (Non-African American) 92.6 ml/min; Potassium 3.4 mmol/L (3.5-5.1)
--- NOTE | 2023-11-08 08:13 | XRay Report ---
XR chest 1V portable HISTORY: stroke alert COMPARISON: None. FINDINGS: There are low lung volumes. No pneumothorax. No pleural effusions. Prominence of the cardia c silhouette may be accentuated by the low lung volumes. There are few bibasilar linear densities. Th is favors subsegmental atelectasis. The upper lung zones are clear. No evidence for pulmonary edema. No acute fractures. IMPRESSION: Bibasilar linear densities are nonspecific but favor subsegmental atelectasis given the low lung volu mes. ACT 112: Negative or not required by law. Electronically signed by: Donovan Mccloud M.D. 11/08/2023 8:11 AM
[2023-11-08 08:51] LABS: Estimated Average Glucose 117 mg/dl; Hemoglobin A1C 5.7 % (4.5-5.6)
--- NOTE | 2023-11-08 08:57 | Neurology Consultation ---
Date of Consultation November 08, 2023 Assessment & Plan (1) Transient visual disturbance: History of Present Illness Attending Physician: Grady Toledo DO History of Present Illness pt this morning feeling much better. essentially resolved symptoms. no headache and vision back to baseline. mri brain negative for stroke. CTA negative except for narrowing rt TAM. admission HPI:Omid Gordon is a 48-year-old male with history of hypertension, hyperlipidemia ongoing tobacco use and prior hemorrhagic CVA 4 years ago presenting with complaint of gait instability as well as blurry vision. Patient reports having a posterior headache and pain in the back of his neck and shoulders as well as chest which has been ongoing since approximately 1700 today. He had some unsteady gait as well as some visual disturbance as wellstates that he was unable to focus his eyes and it felt as though he was looking through a tunnel. He denies focal numbness, tingling or weakness. No additional complaints such as fever or chills, shortness of breath, abdominal pain, nausea, vomiting, diarrhea. In the ER, patient is afebrile, hypertensive otherwise hemodynamically stable. No acute distress Code stroke activated, patient discussed between ER provider and Elizabeth stroke provider. Recommended Plavix in addition to his aspirin. Allergies Allergy/AdvReac Type Severity Reaction Status Date / Time No Known Allergies Allergy Mild Verified 11/08/23 03:06 Home Medications Medication Instructions Recorded Confirmed Type atorvastatin 80 mg tablet 80 mg PO HS 03/04/23 11/08/23 History losartan 100 mg tablet 100 mg PO HS 03/04/23 11/08/23 History aspirin 325 mg tablet 325 mg PO DAILY 11/08/23 11/08/23 History Patient History Medical History (Updated 11/08/23 @ 08:57 by Doyle Salazar MD) Transient visual disturbance Cerebrovascular accident hemorrhagic CVA Hyperlipidemia HTN (hypertension) Kidney stones Surgical History H/O lithotripsy ESWL Left 02/2023 at [facility] [place] Hx of wisdom tooth extraction Hx of excision of mass fatty tumor, back Hx of appendectomy Family History Other No family history of adverse response to anesthesia Social History Smoking Status: Heavy tobacco smoker Tobacco Type: Cigarettes Cigarettes Per Day: 1 pacl; Second Hand Exposure: No; Do You Dip or Chew Tobacco: No; Hx Alcohol Use: Yes Hx Substance Use: No Preferred Language: Sinhala Communication Ability: Effective Machine Puller Required: No Beliefs That Will Affect Care: None Current Living Situation: Spouse Other Information That Helps Us Care for You: No Feels Safe at Home: Yes Safety Concerns: Feels Safe At This Time Assistive Devices: None Review of Systems Review of Systems: All systems reviewed & are unremarkable except as noted in Subjective Constitutional: as per Subjective / HPI Eyes: as per Subjective / HPI Ear, Nose, Mouth, Throat: as per Subjective / HPI Respiratory: as per Subjective / HPI Cardiovascular: as per Subjective / HPI Gastrointestinal: as per Subjective / HPI Musculoskeletal: as per Subjective / HPI Integumentary: as per Subjective / HPI Neurologic: as per Subjective / HPI Psychiatric: as per Subjective / HPI Endocrine: as per Subjective / HPI Hematologic / Lymphatic: as per Subjective / HPI Allergy / Immunological: as per Subjective / HPI Exam (Neuro) Physical Exam: HEENT: normocephalic Neuro: Mental: AOx4, fluent speech, normal comprehension, no apraxia, no L/R confusion, no neglect CN: PERRL, Full EOM, symmetric face, intact sensation t/o face, midline T/U/P, 5/5 SCM/traps. Motor: No abnormal movements, normal tone and bulk, 5/5 t/o bilaterally Sens: intact to touch b/l grossly Coord: intact FNT b/l DTR: 2+ sym b/l gait: pt states he walked without problem this morning. Impression: 48 yo male with transient vague neurological symptoms with headache. DDx including migraine syndrome vs TIA. given his risk factors, reasonable to finish up and tx like TIA at this point. Recommendations: 1.finish stroke work up as planned 2. antiplatelet therapy: * DAPT (dual antiplatelet therapy): start for pts with ABCD2 score 4 or higher. Initial loading dose with ASA 325mg and Plavix 300mg (if pt has not been started), then ASA 81mg daily and Plavix 75mg daily. Continue DAPT for 21 days if found small vessel disease only or continue for 90 days if found to have intracranial large artery atherosclerosis. After that, can continue single antiplatelet therapy (either ASA or Plavix). 3. Images: TTE with bubble 4. Permissive Hypertension for next 24 hrs (from admission). 5 6. Long-term SBP goal less than 130. 7. Plenty of hydration including IV flui d if possible (use isotonic solution) next 1-2 days. Avoid hypovolemia and hypotension. 8. Initiate DVT prevention therapy. 9. Avoid hypoglycemia, serum glucose goa l during hospitalization: 140-180. 10. Long-term HgA1c goal less than 7. 11. Start statin if not on it and no abs olute contraindication, long-term LDL goal less than 70. 12. Head of bed up 30 degrees if possibl e. 13. Stroke education by nursing and appr opriate staff. 14. Telemetry monitoring. Consider moth exterminator cardiac monitoring, i.e. MCOT (mobile cardiac outpatient telemetry) or ICM (insertable monitoring and evaluation advisor, e.g. LINQ), if never had detention cardiac monitoring done previously. And if found to have atrial flutter or fibrillation, should consider anticoagulation therapy if no contraindication. not much to add from neurology at this point. call if new question. discussed with family med resident. Chart reviewed I have spent more than 50% educating patient about potential diagnosis and neurological evaluation and coordinating care with patient's treatment team. Total time spent (including chart review and coordination of care): 60 min (this includes chart review). Results & Data Vital Signs (Past 12 Hours) Vital Signs Pulse Pulse Resp BP BP Pulse Ox O2 Del Method 11/08/23 07:31 80 11/08/23 06:30 85 26 H 92 11/08/23 06:20 85 26 H 97 11/08/23 06:10 83 22 95 11/08/23 06:00 93 H 15 95 11/08/23 06:00 84 18 150/96 H 93 11/08/23 05:50 84 18 93 11/08/23 05:40 92 H 14 92 11/08/23 05:30 91 H 20 94 11/08/23 05:20 83 20 96 11/08/23 05:10 93 H 17 97 11/08/23 05:00 92 H 21 95 11/08/23 05:00 86 21 148/94 H 95 11/08/23 04:52 86 21 95 11/08/23 04:00 92 H 19 93 11/08/23 04:00 89 14 156/100 H 95 11/08/23 03:50 89 14 95 11/08/23 03:40 83 19 94 11/08/23 03:30 98 H 19 95 11/08/23 03:20 79 20 93 11/08/23 03:10 86 21 94 11/08/23 03:01 90 21 158/97 H 95 11/08/23 03:01 90 21 95 11/08/23 03:00 89 11/08/23 03:00 90 20 95 11/08/23 02:50 83 18 96 11/08/23 02:40 80 21 94 11/08/23 02:30 81 21 94 11/08/23 02:20 98 H 17 94 11/08/23 02:10 86 25 H 93 11/08/23 02:00 886 H 21 147/95 H 94 11/08/23 02:00 86 21 94 11/08/23 01:50 88 21 96 11/08/23 01:40 90 14 93 11/08/23 01:20 84 22 94 11/08/23 01:10 88 22 93 11/08/23 01:00 88 19 93 11/08/23 01:00 87 25 H 139/96 94 11/08/23 00:50 87 25 H 94 11/08/23 00:40 86 24 97 11/08/23 00:30 146/102 H 11/08/23 00:30 84 22 97 11/08/23 00:20 89 18 96 11/08/23 00:10 78 18 96 11/08/23 00:00 87 25 H 96 11/08/23 00:00 141/105 H 11/07/23 23:50 81 23 97 11/07/23 23:40 86 20 97 11/07/23 23:30 86 21 95 11/07/23 23:30 85 26 H 144/106 H 97 11/07/23 23:20 85 26 H 97 11/07/23 23:10 81 20 95 11/07/23 23:00 79 11/07/23 23:00 78 20 95 11/07/23 23:00 81 15 139/110 H 95 11/07/23 23:00 79 11/07/23 22:57 81 15 95 11/07/23 22:02 82 16 141/103 H 95 Room Air 11/07/23 21:12 83 16 148/103 H 94 Room Air 11/07/23 21:11 84 16 94 Room Air 11/07/23 21:11 94 Room Air PG Care Time/CCT Total # of Minutes Spent Total Time Spent with Patient: Total time spent is greater than 50% in coordination of care (as documented) at patient's floor/unit and/or counseling patient: Coding Level of Care Code 50141 IN/OBS CONSULT LVL 4,60M Diagnoses Transient visual disturbance H53.9
[2023-11-08] MEDS: CLOPIDOGREL BISULFATE 75 MG TAB PO SCH (09:23)
[2023-11-08] MEDS: ASPIRIN 81 MG ECTAB PO SCH (09:23)
--- NOTE | 2023-11-08 09:56 | XCELERA ---
[id number] [id number]
--- NOTE | 2023-11-08 10:54 | Electrocardiogram Report ---
Test Reason : Blood Pressure : / mmHG Vent. Rate : 082 BPM Atrial Rate : 082 BPM P-R Int : 186 ms QRS Dur : 106 ms QT Int : 366 ms P-R-T Axes : 056 -52 012 degrees QTc Int : 427 ms Normal sinus rhythm Incomplete right bundle branch block Left anterior fascicular block Inferior infarct , age undetermined Poor R wave progression, consider anterior VT vs. lead placement vs. LVH Abnormal ECG No previous ECGs available Confirmed by Sunil Keith ([id number]) on 11/08/2023 10:54:23 AM Referred By: REFERRED SELF Confirmed By:Federico Keith
--- NOTE | 2023-11-08 11:09 | Magnetic Resonance Report ---
MR brain wo/w con HISTORY: 48 years-old Male ?CVA Acute stroke-like symptoms. COMPARISON: 11/07/2023. TECHNIQUE: Multiplanar and multisequence MRI of the brain was obtained with and without the use of IV contrast. FINDINGS: No restricted diffusion. Partially empty sella. There is an ovoid 5 mm T2 hyperintense structure with in the posterior cell on image 11 series 3. No acute intracranial hemorrhage, midline shift, abnormal extra-axial collection, hydrocephalus or intra-axial mass. No pathologic blooming artifact on the T2 *series. Motion degraded exam. Mild nonspecific foci of increased T2/FLAIR signal within the perivent ricular white matter, likely of no clinical significance. There are 2 subcentimeter T2 hyperintense f oci within the periventricular left parietal lobe. No suspicious foci of enhancement. Cerebral venous sinuses and major arterial flow voids appear patent. Skull, orbits and soft tissues a re unremarkable. Mastoid air cells are clear. Possible small left frontal lobe developmental venous a nomaly on image 10 series 10. IMPRESSION: 1. No acute intracranial abnormality. No acute or subacute infarct. 2. Suggestion of two subcentimeter chronic lacunar infarcts within the periventricular left parietal lobe. 3. No abnormal enhancement. ACT 112: Negative or not required by law. The above report was generated using voice recognition software. It may contain grammatical, syntax o r spelling errors. Dictated: 11/08/2023 7:03 AM Transcribed: 11/08/2023 8:49 AM Kamran [id number] [email or web address] Electronically signed by: Raghu Aleman M.D. 11/08/2023 11:08 AM
--- NOTE | 2023-11-08 14:04 | Discharge Summary ---
Date of Service November 08, 2023 Admission HPI Per Admitting Provider Omid Gordon is a 48-year-old male with history of hypertension, hyperlipidemia ongoing tobacco use and prior hemorrhagic CVA 4 years ago presenting with complaint of gait instability as well as blurry vision. Patient reports having a posterior headache and pain in the back of his neck and shoulders as well as chest which has been ongoing since approximately 1700 today. He had some unsteady gait as well as some visual disturbance as wellstates that he was unable to focus his eyes and it felt as though he was looking through a tunnel. He denies focal numbness, tingling or weakness. No additional complaints such as fever or chills, shortness of breath, abdominal pain, nausea, vomiting, diarrhea. In the ER, patient is afebrile, hypertensive otherwise hemodynamically stable. No acute distress Code stroke activated, patient discussed between ER provider and Betty stroke provider. Recommended Plavix in addition to his aspirin. ER course: Plavix 300 mg Toradol 15 mg IV Normal saline x 1 L Admission Exam Per Admitting Provider General: patient resting comfortably, NAD, non-toxic in appearance, AA&O x 4 Skin: warm, dry, intact, no rashes or lesions HEENT: NC/AT, PERRL, EOMI, anicteric sclera, conjunctiva without injection, external ear normal to inspection and nontender, nares patent, moist mucus membranes, dentition intact, no oropharyngeal lesions, neck supple, trachea midline, no LAD, no thyromegaly, no JVD Heart: +S1/S2, regular, no m/r/g Lungs: equal air entry bilaterally, no rales/rhonchi/wheezes Abd: +BS, soft, NT/ND, no masses/organomegaly/ascites Ext: warm, 2+ pulses in UE/LE bilaterally, no clubbing/cyanosis or edema Neuro: nonfocal, patient AA&O x 4, speech intact, no facial droop, moving all extremities on command with equal strength 5/5 Principal Diagnosis TIA Discharge Exam GENERAL: awake, alert, oriented in all spheres, afebrile, no acute distress EYES: EOM intact CARDIO: RRR, no r/m/g RESP: CTA, normal respiratory effort, no respiratory distress GI: non distended, non tender MSK: no LE swelling bilaterally, no calf tenderness NEURO: symmetrical smile and eye brow raise, symmetric sock boarder strength, normal UE and LE motor strength bilaterally passive and against resistance Discharge Data Allergies Allergy/AdvReac Type Severity Reaction Status Date / Time No Known Allergies Allergy Mild Verified 11/08/23 03:06 Consultations 11/07/23 22:33 ED Decision to Admit Stat 11/08/23 01:57 Consult Neurology Routine Ordered Studies 11/07/23 21:00 CT head/brain wo con Stat 11/07/23 21:08 CTA head w con [CT angio head w con] Stat CTA neck with con [CT angio neck with con] Stat 11/08/23 03:26 MR brain wo/w con Routine Hospital Course (1) Transient ischemic attack (TIA): Patient with history of HTN, HLD, and previous CVA around 4 years ago who presented to the ED with visual disturbance and pattern concerning for CVA. Code stroke alert was called and patient taken for imaging. Head CT and Head MRI not showing changes concerning for stroke. Patient was given loading dose of plavix and has been taking 325mg of ASA at home due to last CVA. Neurology service evaluated and they stated patient had clinical picture more consistent with TIA rather than stroke, and recommended medical management with DAPT with ASA 81mg and Plavix 75 mg daily for 90 days. Patient also to continue home Atorvastatin and ARB. Patient and patient's advised of these medications added to his regimen, and was also advised that he should rest for the next few days. Patient referred he would be working tomorrow night and his position would require him to sit mostly, and then he should have the next 4 days free. Advised of risks and benefits of starting DAPT with high exertion, and patient expressed understanding and agreed to rest after tomorrow. Patient advised to make an appointment with his PCP in the next 1-2 weeks for f/u. All questions answered. Total Time Total Time Spent Total Time Spent (In Minutes): As per attending attestation Discharge Plan Discharge Items Patient Disposition: Home - Self-Care Reason For Visit: HEADACHE, ? STROKE Discharge Diagnosis: TIA Activity: Per Instructions section Non-emergency contact: Primary Care Provider Call non-emergency contact if: you have any medication questions Follow-up/Referrals: Ludwin Mohr DO [Primary Care Provider] - Diet: Regular Addtl Attending Provider Instructions: You were seen in the hospital for concern of new neurologic symptoms consistent with a stroke. While you are here, those symptoms seem to improve without any intervention and your brain imaging were without abnormality. The neurology team was consulted for recommendations regarding this condition, and it is suspected that you had something called a transient ischemic attack(TIA) also known as a "mini stroke". A TIA is there is essentially a temporary stroke where there is no permanent damage but mimics the symptoms of a stroke. We suspect that this event happened due to ischemia caused by long-term smoking history. We understand that you have made several attempts in the past from quitting smoking and have had some success in the past, however, if you do continue to smoke at the rate that you are, another TIA will occur or worse, a stroke with permanent deficit is a possibility. Please discuss with your primary care provider on modalities on how to become tobacco free. Please see your primary care provider within 1 week of discharge. Medication changes: -Add Plavix 75 mg daily for the next 90 days in addition to your aspirin -Change aspiring dose from 325mg daily to 81 mg daily for the next 90 days. We do recommend that you do not lift anything over 20 pounds for the next 7 days. We did encourage you to take some time off of work, however, after hearing the benefits of taking time off, you did decide it would be best for you to return to work despite our recommendation. Please be careful and do not lift more than 20 pounds as previously mentioned and avoid activities that increase your risk for falling or injury given your increased bleeding risk while on Plavix in addition to your aspirin. Is been a pleasure to be part of your care and we wish you the best in both your health and recovery. Pending Studies at Discharge: No Stand-Alone Forms: My [facility], Smoking Cessation Medications and DC Order Prescriptions: New clopidogrel 75 mg Tablet 75 mg PO QAM Qty: 90 0RF aspirin 81 mg Tablet,Delayed Release (Dr/Ec) 81 mg PO DAILY 90 Days Qty: 90 0RF Continued atorvastatin 80 mg Tablet 80 mg PO HS losartan 100 mg Tablet 100 mg PO HS Discontinued aspirin 325 mg Tablet 325 mg PO DAILY Discharge Orders: Discharge Order (Routine); Ordered 11/08/23 Ordered By: Don Moreno/Other Patient Handouts: TIA Dc Admission Data Admit Date/Time: 11/07/23 23:17 Attending Provider: Debbie Miller Admit Provider: Ariana Velasco Primary Care Provider: Ludwin Mohr. Other Providers: Doug Staples; Ariana Velasco Other Interventions: Discharge Summary Assessment (RN) Last Done: 11/08/23 15:25 Supervising Physician Co-Signing Physician Notes I personally examined the patient and verified reyes points of history and exam, discussed case, and agree with decision making and plan documented by Dr. George. Patient states symptoms have resolved. Discussed increased risk of CVA around window of TIA. Primary team advised strongly for patient to quit smoking. Advised time off work, patient states that he must work tomorrow, agrees to light duty and no lifting >20 lbs, he will then have four days off. Discussed increased bleeding risk on DAPT therapy for next 90 days. Debbie Miller DO, MS Resident Supervision Co-Signing Physician Notes I saw the patient independently and developed plan and concourse with Dr. George as above. Patient came in with neurologic deficits that were temporary and resolved by the time of examination. Patient with previous CVA and now new diagnosed TIA most likely due to current smoking. Discussed smoking cessation strategies with patient and provided information regarding his health risk and likelihood of future CVA if he continues to smoke. Patient was understanding of this and will discuss with his primary care provider strategies on how to become nicotine/tobacco free. Advised patient not to go to work for several days, however, patient adamant that he must go to work on 11/09/2023 or else he would be fired from his job. Again recommended against this, however, if he must go to work, strongly encouraged him not to lift more than 20 pounds for 1 week postdischarge. Placed on dual antiplatelet therapy for the next 90 days. ASA changed from 325 mg to 81 mg daily. Follow-up with primary care provider within 1 week of discharge.
[2023-11-08] MEDS ORDERED: STROKE PATIENT DISCHARGE STA (14:54)
[2023-11-08] MEDS ORDERED: ATORVASTATIN 40 MG TAB PO SCH (21:00)
== END 2023-11-08 15:25 | disposition home or self-care (01) | DRG 69 ==
LOC: ED 20:21 → EDINP 23:17 → SUATTDRO 23:17 → EDINP 11-08 08:28
DX: Z79.899 Other long term (current) drug therapy; E78.5 Hyperlipidemia, unspecified; H53.9 Unspecified visual disturbance; I10 Essential (primary) hypertension; Z86.73 Personal history of transient ischemic attack (TIA), and cerebral infarction without residual deficits; Z79.82 Long term (current) use of aspirin; I66.11 Occlusion and stenosis of right anterior cerebral artery; G45.9 Transient cerebral ischemic attack, unspecified; F17.210 Nicotine dependence, cigarettes, uncomplicated; Z71.6 Tobacco abuse counseling